=== PATIENT | male | born 1955 | race Caucasian/White ===

== ENCOUNTER → 2020-12-26 | Emergency (ER) | payer OTHER ==
[~2020-12-26] VITALS: Ht 175.3 cm; Wt 93.9 kg
[~2020-12-26] MED LIST: ASPIRIN81 M1 PO; CETIRIZINE HCL10 MG PO; CREON DR 12,001 EACH PO; FENOFIBRATE134 MG PO; FISH OIL 1,2001 EACH PO; GLIMEPIRIDE4 MG PO; JANUMET 50-1,01 EACH PO; LEVEMIR100 UNIT/1 SQ; LOSARTAN POTASS50 MG PO; OMEPRAZOLE40 MG PO; SIMVASTATIN80 MG PO; TRICOR145 MG PO; ULTRAM 50MG50 MG PO; VICTOZA 2-0.6 MG/0.1 SQ; VITAMIN E400 UNI3 PO
== END ==
LOC: ER 10:35
DX: U07.1 COVID-19 (principal); E11.9 Type 2 diabetes mellitus without complications; E78.5 Hyperlipidemia, unspecified; Z95.810 Presence of automatic (implantable) cardiac defibrillator; Z79.4 Long term (current) use of insulin
CPT/HCPCS: 99283